=== PATIENT | male | born 1955 | race Caucasian/White ===

== ENCOUNTER → 2024-06-03 | Outpatient (BNVA) | payer MEDICARE, MEDICAID, SELFPAY | END | disposition home or self-care (01) | PROVIDERS: PCP Internal Medicine; Referring Provider Internal Medicine; Visit Provider Urology | DX: N40.1 Benign prostatic hyperplasia with lower urinary tract symptoms (principal); R39.12 Poor urinary stream; I50.9 Heart failure, unspecified | CPT/HCPCS: 51741; 51798 ==

== ENCOUNTER 2024-09-23 10:15 | Outpatient (AMB) | payer MEDICARE, MEDICAID, SELFPAY ==
--- NOTE | 2024-09-23 10:41 | ORTHONT_ITS ---
Vital signs 09/23/24 10:43 Height 1.88 m Height Method Stated Weight 116.176 kg Weight Measurement Method Standing Scale BMI 32.8 BP 138/64 H Blood Pressure Source Automatic Cuff Blood Pressure Location Left Upper Arm Position Sitting Respiration 18 Pulse 56 L Pulse Source Monitor Temp 98.1 F Temp Source Temporal Artery Scan Pulse Oximetry (%) 95 Oxygen Delivery Method Room Air Med/Allergies Allergies & Medications Allergies adhesive Allergy (Uncoded 06/03/24 13:43) blisters Medication Reconciliation cholecalciferol (vitamin D3) 125 mcg (5,000 unit) capsule 125 mcg PO QDAY 06/20/22 [History Confirmed 09/23/24] famotidine 20 mg tablet 20 mg PO QDAY 06/20/22 [History Confirmed 09/23/24] multivitamin 1 tab PO QDAY 06/20/22 [History Confirmed 06/03/24] tamsulosin 0.4 mg capsule 0.8 mg PO QHS 06/20/22 [History Confirmed 09/23/24] oxybutynin chloride 10 mg tablet,extended release 24 hr 10 mg PO QDAY 09/23/24 [History Confirmed 09/23/24] Exam Exam Patient is in no acute distress and is cooperative with the examination today. Breathing is nonlabored. In no respiratory distress. Bilateral extremities were evaluated and demonstrates sensation intact to light touch. Palpable pedal pulses are present. No significant edema is present. Bilateral hips were examined. The patient has no pain with log roll of the hips. Internal rotation to 30 degrees and external rotation to 30 degrees is painless. Negative FADIR. The left knee was examined. The left knee is in varus alignment. Range of motion from 0-115 degrees. Knee is stable to varus and valgus as well as AP translation with <5mm. Patient has a negative McMurrays. There is no pain with patellofemoral compression and no crepitus noted. The knee is tender to palpation medially. The right knee was also examined. The right knee is in varus alignment. Range of motion from 0-120 degrees. Knee is stable to varus and valgus as well as AP translation with <5mm. Patient has a negative McMurrays. There is no pain with patellofemoral compression and no crepitus noted. The knee is tender to palpation medially. I have an x-ray report which says there is severe arthritis bilaterally Assessment and Plan Problem List (1) Degenerative arthritis of knee, bilateral: Status: Acute Plan: Patient is a pleasant 68-year-old male with bilateral knee arthritis. He is still doing well and has extensive medical comorbidities. He would like to continue with conservative management. We recommend injections and I would like to see an x-ray as well. We will see him at the next visit for likely injections Advanced Care Planning Discussion Advance care planning discussed with:: patient Office Procedures GNS Level of Care Nursing/Assessment Patient Status: Initial/New Patient Nursing Assessment/Reassesment: Medication Reconciliation, Update PMH in EMR and Vital Signs Coordination of Care: Complex Care and Chronic Disease 1-5, Education Complex Pt/Fam, Consent,records obtained, informed consent, 1 Ins Authorization, Lab and Imaging orders, Results/Orders obtained and Staff clarify orders New Patient Charge New Patient Point Assignment: 1124 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 Intake Visit Data Collection New Patient or Established: New Patient (never been to [facility]) Reason for Visit:: RIGHT KNEE PAIN Seen by Clinical Staff ONLY (RN/MA): No PCP or OBGYN visit in last 3 months: Yes Hx Now: No Do You Feel Safe at Home: Yes Authorities Contacted: N/A Questionairres Past Medical History Past Medical History Have you ever been diagnosed with any of the following: Cardiology Problems Congestive Heart Failure: Yes Respiratory Problems Smoking: No Smoking Exposure: No Subjective Visit Visit for: new patient and knee Immunization / Flu Flu Vaccine in the Last 12 Months: Yes Flu Vaccine Exclusion Criteria: Already Received History of Present Illness Chief complaint: Bilateral knee pain Date of injury / onset of symptoms: 2009 Duane is a pleasant 68-year-old male with bilateral knee pain worse on the right. This has been ongoing for several years. Has had over 6 injections in that knee. He is no longer taking anti-inflammatories. He has a history of congestive heart failure and a history of a valve replacement. He is on any blood thinners right now. He reports he still functioning well Pain Pain level (0-10): 3 Pain duration: COMES AND GOES Pain location: inside (medial), outside (lateral) and anterior Pain quality: dull Pain timing: increases with activity Associated signs & symptoms: none Ambulatory data Ambulatory device: none Treatments Number of previous injections: 2 Improvement with previous injections: No Improvement with PT: No Improvement with NSAIDS: no Review of Systems Review of Systems: All systems negative unless otherwise noted in HPI.
[2024-09-23 10:43] VITALS: BP 138/64; PULSE 56; RESP 18; TEMP 36.7; O2SAT 95; BMI 32.8
--- NOTE | 2024-09-23 10:48 | XR_ITS ---
Examination: Bilateral knees 2 views Right lateral knee left lateral knee 2 views Right axial knee left axial knee 2 views TECHNIQUE: Bilateral AP knees standing single view, bilateral PA knees standing single view flexion Standing right lateral knee left lateral knee 2 views Right axial knee left axial knee 2 views total 6 views Exam date and time: September 23, 2024 1102 hours INDICATIONS: Knee pain one year. FINDINGS: Moderate osteopenia Moderate to advanced narrowing medial joint space right knee Moderate osteoarthritis right patellofemoral joint No fracture Moderate narrowing medial joint space left knee Moderate osteoarthritis left patellofemoral joint No fracture IMPRESSION: Moderate to advanced narrowing medial joint space right knee Moderate osteoarthritis right patellofemoral joint Moderate narrowing medial joint space left knee Moderate osteoarthritis left patellofemoral joint
== END 2024-09-23 10:54 | disposition home or self-care (01) ==
LOC: HODSRG 10:15
PROVIDERS: PCP Internal Medicine; Referring Provider Internal Medicine; Supervising Provider Orthopaedic Surgery Adult Reconstructive Orthopaedic Surgery; Visit Provider Orthopaedic Surgery Adult Reconstructive Orthopaedic Surgery
DX: M17.0 Bilateral primary osteoarthritis of knee (principal); M25.562 Pain in left knee; M25.561 Pain in right knee
CPT/HCPCS: 73564; 99204; G0463

== ENCOUNTER 2024-10-14 09:35 | Outpatient (AMB) | payer MEDICARE, MEDICAID, SELFPAY ==
[2024-10-14 10:18] VITALS: BP 109/70; PULSE 69; RESP 18; TEMP 36.6; O2SAT 98; BMI 32.3
--- NOTE | 2024-10-14 10:18 | ORTHONT_ITS ---
Vital signs 10/14/24 10:18 Height 1.88 m Height Method Stated Weight 114.475 kg Weight Measurement Method Standing Scale BMI 32.3 BP 109/70 Blood Pressure Source Automatic Cuff Blood Pressure Location Right Upper Arm Position Sitting Respiration 18 Pulse 69 Pulse Source Monitor Temp 97.8 F Temp Source Temporal Artery Scan Pulse Oximetry (%) 98 Oxygen Delivery Method Room Air Med/Allergies Allergies & Medications Allergies adhesive Allergy (Uncoded 10/14/24 10:18) blisters Medication Reconciliation cholecalciferol (vitamin D3) 125 mcg (5,000 unit) capsule 125 mcg PO QDAY 06/20/22 [History Confirmed 10/14/24] famotidine 20 mg tablet 20 mg PO QDAY 06/20/22 [History Confirmed 10/14/24] multivitamin 1 tab PO QDAY 06/20/22 [History Confirmed 10/14/24] tamsulosin 0.4 mg capsule 0.8 mg PO QHS 06/20/22 [History Confirmed 10/14/24] oxybutynin chloride 10 mg tablet,extended release 24 hr 10 mg PO QDAY 09/23/24 [History Confirmed 10/14/24] Exam Exam Patient is in no acute distress and is cooperative with the examination today. Breathing is nonlabored. In no respiratory distress. Bilateral extremities were evaluated and demonstrates sensation intact to light touch. Palpable pedal pulses are present. No significant edema is present. Bilateral hips were examined. The patient has no pain with log roll of the hips. Internal rotation to 30 degrees and external rotation to 30 degrees is painless. Negative FADIR. The left knee was examined. The left knee is in varus alignment. Range of motion from 0-115 degrees. Knee is stable to varus and valgus as well as AP translation with <5mm. Patient has a negative McMurrays. There is no pain with patellofemoral compression and no crepitus noted. The knee is tender to pal pation medially. The right knee was also examined. The right knee is in varus alignment. Range of motion from 0-120 degrees. Knee is stable to varus and valgus as well as AP translation with <5mm. Patient has a negative McMurrays. There is no pain with patellofemoral compression and no crepitus noted. The knee is tender to palpation medially. X-rays demonstrate severe arthritis on the right side mainly 20 is narrowing. On the left side he has mild to moderate arthritis Assessment and Plan Problem List (1) Degenerative arthritis of knee, bilateral: Status: Acute Plan: Patient is a pleasant 68-year-old male with bilateral knee arthritis. He is still doing well and has extensive medical comorbidities. He would like to continue with conservative management. He would like bilateral knee injections today. Recommend knee cortisone injections as patient would like to proceed with conservative treatment at this time. The risks and benefits of the procedure were reviewed with the patient and patient gave verbal consent to continue with the procedure. Procedure: performed by Dr. Dobbs Using sterile technique the Bilateral knees were thoroughly prepped with alcohol, and approximately 1 cc of Kenalog 40 mg/mL and 4 cc of 1% lidocaine was injected into each knee without resistance into the medial tibial femoral joint space. The patient tolerated the procedure. Advanced Care Planning Discussion Advance care planning discussed with:: patient Office Procedures GNS Level of Care Nursing/Assessment Patient Status: Established Patient Nursing Assessment/Reassesment: Medication Reconciliation, Update PMH in EMR and Vital Signs Coordination of Care: Complex Care and Chronic Disease 1-5, Education Complex Pt/Fam, Consent,records obtained, informed consent, Results/Orders obtained and Staff clarify orders Established Patient Charge Established Patient Point Assignment: 95 Established Patient Point Charge: EP Level 3 (80-115) Surgical Proc/IM SQ injection Major Surgical Procedure: Yes (KNEE INJECTIONS ) Medication Given Medication Given Medication Given: Yes Documented Dose Given: 4 Route: Infiitration Medication Given Medication Given Medication Given: Yes Documented Dose Given: 2 Route: Infiitration Office Meds Xylocaine 10 mg/mL (1 %) injection solution Performing Provider: Daryl Dobbs MD Performing Location: [facility] Administered by: Daryl Dobbs MD on 10/14/24 10:43 Dose Route Admin Location Dispensed Lot Number Expiration Date [facility] [employer] 40 mL Infiltration 40 mL triamcinolone acetonide 40 mg/mL suspension for injection Performing Provider: Daryl Dobbs MD Performing Location: [facility] Administered by: Daryl Dobbs MD on 10/14/24 10:43 Dose Route Admin Location Dispensed Lot Number Expiration Date 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 PCP or OBGYN visit in last 3 months: Yes Hx Now: No Do You Feel Safe at Home: Yes Authorities Contacted: N/A Questionairres Past Medical History Past Medical History Have you ever been diagnosed with any of the following: Cardiology Problems Congestive Heart Failure: Yes Respiratory Problems Smoking: No Smoking Exposure: No Subjective Visit Visit for: follow up visit, knee and x-rays Immunization / Flu Flu Vaccine in the Last 12 Months: No Flu Vaccine Exclusion Criteria: No Exclusion Criteria History of Present Illness Chief complaint: F/U XRAYS Date of injury / onset of symptoms: 2009 Duane is a pleasant 68-year-old male with bilateral knee pain worse on the right. This has been ongoing for several years. Has had over 6 injections in that knee. He is no longer taking anti-inflammatories. He has a history of congestive heart failure and a history of a valve replacement. He is not on any blood thinners right now. He reports he still functioning well Personal History Red flag PMH: BMI BMI Counceling provided: Yes Pain Pain level (0-10): 6 Pain duration: ALL DAY Pain location: inside (medial), outside (lateral) and anterior Pain quality: dull Pain timing: increases with activity Associated signs & symptoms: none Ambulatory data Ambulatory device: none Treatments Number of previous injections: 2 Improvement with previous injections: No Improvement with PT: No Improvement with NSAIDS: n/a Review of Systems Review of Systems: All systems negative unless otherwise noted in HPI.
== END 2024-10-14 10:38 | disposition home or self-care (01) ==
LOC: HODSRG 09:35
PROVIDERS: PCP Internal Medicine; Referring Provider Internal Medicine; Supervising Provider Orthopaedic Surgery Adult Reconstructive Orthopaedic Surgery; Visit Provider Orthopaedic Surgery Adult Reconstructive Orthopaedic Surgery
DX: M17.0 Bilateral primary osteoarthritis of knee (principal); I50.9 Heart failure, unspecified; Z95.2 Presence of prosthetic heart valve
CPT/HCPCS: 20610; 99213; J3301; J3490; G0463

== ENCOUNTER 2025-01-18 10:09 | Outpatient (AMB) | payer MEDICARE, MEDICAID, SELFPAY ==
[2025-01-18 10:56] VITALS: BP 117/74; PULSE 80; RESP 20; TEMP 36.8; O2SAT 95; BMI 24.5
--- NOTE | 2025-01-18 10:56 | PD.ORTHCLVIS ---
Vital signs 01/18/25 10:56 Height 1.88 m Height Method Stated Weight 86.693 kg Weight Measurement Method Standing Scale BMI 24.5 BP 117/74 Blood Pressure Source Automatic Cuff Blood Pressure Location Left Upper Arm Position Sitting Respiration 20 Pulse 80 Pulse Source Monitor Temp 98.2 F Temp Source Temporal Artery Scan Pulse Oximetry (%) 95 Oxygen Delivery Method Room Air Med/Allergies Allergies & Medications Allergies adhesive Allergy (Uncoded 01/18/25 11:09) blisters Medication Reconciliation cholecalciferol (vitamin D3) 125 mcg (5,000 unit) capsule 125 mcg PO QDAY 06/20/22 [History Confirmed 01/18/25] famotidine 20 mg tablet 20 mg PO QDAY 06/20/22 [History Confirmed 01/18/25] multivitamin 1 tab PO QDAY 06/20/22 [History Confirmed 01/18/25] tamsulosin 0.4 mg capsule 0.8 mg PO QHS 06/20/22 [History Confirmed 01/18/25] oxybutynin chloride 10 mg tablet,extended release 24 hr 10 mg PO QDAY 09/23/24 [History Confirmed 01/18/25] Exam Exam Patient is in no acute distress and is cooperative with the examination today. Breathing is nonlabored. In no respiratory distress. Bilateral extremities were evaluated and demonstrates sensation intact to light touch. Palpable pedal pulses are present. No significant edema is present. Bilateral hips were examined. The patient has no pain with log roll of the hips. Internal rotation to 30 degrees and external rotation to 30 degrees is painless. Negative FADIR. The left knee was examined. The left knee is in varus alignment. Range of motion from 0-115 degrees. Knee is stable to varus and valgus as well as AP translation with <5mm. Patient has a negative McMurrays. There is no pain with patellofemoral compression and no crepitus noted. The knee is tender to palpation medially. The right knee was also examined. The right knee is in varus alignment. Range of motion from 0-120 degrees. Knee is stable to varus and valgus as well as AP translation with <5mm. Patient has a negative McMurrays. There is no pain with patellofemoral compression and no crepitus noted. The knee is tender to palpation medially. X-rays demonstrate severe arthritis on the right side with complete joint space narrowing. On the left side he has mild to moderate arthritis Assessment and Plan Problem List (1) Degenerative arthritis of knee, bilateral: Status: Acute Plan: Patient is a pleasant 68-year-old male with bilateral knee arthritis. He is still doing well and has extensive medical comorbidities. He would like to continue with conservative management. He would like bilateral knee injections today. Recommend knee cortisone injection as patient would like to proceed with conservative treatment at this time. The risks and benefits of the procedure were reviewed with the patient and patient gave verbal consent to continue with the procedure. Procedure: performed by Dr. Dobbs Using sterile technique the left knee was thoroughly prepped with alcohol, and approximately 1 cc of Depo-Medrol 80mg/mL and 4 cc of 0.2% ropivacaine was injected without resistance into the medial tibial femoral joint space. The patient tolerated the procedure. Recommend knee cortisone injection as patient would like to proceed with conservative treatment at this time. The risks and benefits of the procedure were reviewed with the patient and patient gave verbal consent to continue with the procedure. Procedure: performed by Dr. Dobbs Using sterile technique the Right knee was thoroughly prepped with alcohol, and approximately 1 cc of Depo-Medrol 80mg/mL and 4 cc of 0.2% ropivacaine was injected without resistance into the medial tibial femoral joint space. The patient tolerated the procedure. Advanced Care Planning Discussion Advance care planning discussed with:: patient Office Procedures GNS Level of Care Nursing/Assessment Patient Status: Established Patient Nursing Assessment/Reassesment: Medication Reconciliation, Update PMH in EMR and Vital Signs Coordination of Care: Complex Care and Chronic Disease 1-5, Education Complex Pt/Fam, Consent,records obtained, informed consent, Results/Orders obtained and Staff clarify orders Established Patient Charge Established Patient Point Assignment: 95 Established Patient Point Charge: EP Level 3 (80-115) Surgical Proc/IM SQ injection Major Surgical Procedure: Yes (BILATERAL KNEE INJECTION) Medication Given Medication Given Medication Given: Yes Documented Dose Given: 1 Route: Infiitration Medication Given Medication Given Medication Given: Yes Documented Dose Given: 1 Route: Infiitration Medication Given Medication Given Medication Given: Yes Documented Dose Given: 4 Route: Infiitration Medication Given Medication Given Medication Given: Yes Documented Dose Given: 4 Route: Infiitration Office Meds methylprednisolone acetate 80 mg/mL suspension for injection Performing Provider: Daryl Dobbs MD Performing Location: [facility] Administered by: Daryl Dobbs MD on 01/18/25 11:24 Dose Route Admin Location Dispensed Lot Number Expiration Date [employer] 80 mg intra-articular 1 mL [id number] 06/24/26 8335-7893-92 [employer] methylprednisolone acetate 80 mg/mL suspension for injection Performing Provider: Daryl Dobbs MD Performing Location: [facility] Administered by: Daryl Dobbs MD on 01/18/25 11:39 Dose Route Admin Location Dispensed Lot Number Expiration Date [employer] 80 mg intra-articular 1 mL [id number] 06/24/26 4393-2584-75 [employer] ropivacaine (PF) 2 mg/mL (0.2 %) injection solution Performing Provider: Daryl Dobbs MD Performing Location: [facility] Administered by: Daryl Dobbs MD on 01/18/25 11:39 Dose Route Admin Location Dispensed Lot Number Expiration Date [employer] 20 mL Infiltration 20 mL [id number] 06/24/27 96192-496-75 [employer] ropivacaine (PF) 2 mg/mL (0.2 %) injection solution Performing Provider: Daryl Dobbs MD Performing Location: [facility] Administered by: Daryl Dobbs MD on 01/18/25 11:39 Dose Route Admin Location Dispensed Lot Number Expiration Date [employer] 20 mL Infiltration 20 mL [id number] 06/24/27 99338-216-42 [facility] [place] Intake Visit Data Collection New Patient or Established: Established Patient (seen at [facility] within 3 years) Reason for Visit:: XRAYS F/U Seen by Clinical Staff ONLY (RN/MA): No Verbal consent obtained for Telemed visit?: No 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 PCP or OBGYN visit in last 3 months: Yes Hx Now: No Do You Feel Safe at Home: Yes Authorities Contacted: N/A Questionairres Past Medical History Past Medical History Have you ever been diagnosed with any of the following: Cardiology Problems Congestive Heart Failure: Yes Respiratory Problems Smoking: No Smoking Exposure: No Subjective Visit Visit for: follow up visit, knee and x-rays Immunization / Flu Flu Vaccine in the Last 12 Months: No Flu Vaccine Exclusion Criteria: No Exclusion Criteria History of Present Illness Chief complaint: F/U XRAYS Date of injury / onset of symptoms: 2009 Duane is a pleasant 68-year-old male with bilateral knee pain worse on the right. This has been ongoing for several years. Has had over 6 injections in that knee. He is no longer taking anti-inflammatories. He has a history of congestive heart failure and a history of a valve replacement. He is not on any blood thinners right now. He reports he still functioning well Personal History Red flag PMH: BMI BMI Counceling provided: Yes Pain Pain level (0-10): 6 Pain duration: ALL DAY Pain location: inside (medial), outside (lateral) and anterior Pain quality: dull Pain timing: increases with activity Associated signs & symptoms: none Ambulatory data Ambulatory device: none Treatments Number of previous injections: 2 Improvement with previous injections: No Improvement with PT: No Improvement with NSAIDS: n/a Review of Systems Review of Systems: All systems negative unless otherwise noted in HPI.
== END 2025-01-18 11:34 | disposition home or self-care (01) ==
LOC: HODSRG 10:09
PROVIDERS: PCP Internal Medicine; Referring Provider Internal Medicine; Supervising Provider Orthopaedic Surgery Adult Reconstructive Orthopaedic Surgery; Visit Provider Orthopaedic Surgery Adult Reconstructive Orthopaedic Surgery
DX: M17.0 Bilateral primary osteoarthritis of knee (principal); I50.9 Heart failure, unspecified
CPT/HCPCS: 20610; 99213; J1010; J2795; G0463

== ENCOUNTER 2025-04-26 09:48 | Outpatient (AMB) | payer MEDICARE, MEDICAID, SELFPAY ==
--- NOTE | 2025-04-26 10:28 | PD.ORTHCLVIS ---
Vital signs 04/26/25 10:29 Height 1.88 m Height Method Stated Weight 109.372 kg Weight Measurement Method Standing Scale BMI 30.9 BP 124/75 Blood Pressure Source Automatic Cuff Blood Pressure Location Left Upper Arm Position Sitting Respiration 20 Pulse 88 Pulse Source Monitor Temp 98.1 F Temp Source Temporal Artery Scan Pulse Oximetry (%) 98 Oxygen Delivery Method Room Air Med/Allergies Allergies & Medications Allergies adhesive Allergy (Uncoded 04/26/25 10:30) blisters Medication Reconciliation cholecalciferol (vitamin D3) 125 mcg (5,000 unit) capsule 125 mcg PO QDAY 06/20/22 [History Confirmed 04/26/25] famotidine 20 mg tablet 20 mg PO QDAY 06/20/22 [History Confirmed 04/26/25] multivitamin 1 tab PO QDAY 06/20/22 [History Confirmed 04/26/25] tamsulosin 0.4 mg capsule 0.8 mg PO QHS 06/20/22 [History Confirmed 04/26/25] oxybutynin chloride 10 mg tablet,extended release 24 hr 10 mg PO QDAY 09/23/24 [History Confirmed 04/26/25] Assessment and Plan Problem List (1) Degenerative arthritis of knee, bilateral: Status: Acute Advanced Care Planning Discussion Advance care planning discussed with:: patient Office Procedures GNS Level of Care Nursing/Assessment Patient Status: Established Patient Nursing Assessment/Reassesment: Medication Reconciliation, Update PMH in EMR and Vital Signs Coordination of Care: Complex Care and Chronic Disease 1-5, Education Complex Pt/Fam, Consent,records obtained, informed consent, Results/Orders obtained and Staff clarify orders Established Patient Charge Established Patient Point Assignment: 95 Established Patient Point Charge: EP Level 3 (80-115) Surgical Proc/IM SQ injection Minor Surgical Procedure: Yes (BILATERAL KNEE INJECTION) Medication Given Medication Given Medication Given: Yes Documented Dose Given: 2 Route: Infiitration Medication Given Medication Given Medication Given: Yes Documented Dose Given: 8 Route: Infiitration Office Meds methylprednisolone acetate 80 mg/mL suspension for injection Performing Provider: Daryl Dobbs MD Performing Location: [facility] Administered by: Daryl Dobbs MD on 04/26/25 10:40 Dose Route Admin Location Dispensed Lot Number Expiration Date Package [facility] Take Up Operator 160 mg intra-articular KNEE 2 mL [id number] 12/22/26 [address]-8 [id number] [employer] ropivacaine (PF) 2 mg/mL (0.2 %) injection solution Performing Provider: Daryl Dobbs MD Performing Location: [facility] Administered by: Daryl Dobbs MD on 04/26/25 10:40 Dose Route Admin Location Dispensed Lot Number Expiration Date Package NDC NDC Take Up Operator 40 mL Infiltration KNEE 40 mL [id number] 06/24/27 97506-666-62 [id number] [facility] Intake Visit Data Collection New Patient or Established: Established Patient (seen at [facility] within 3 years) Reason for Visit:: BILATERAL KNEE INJ Seen by Clinical Staff ONLY (RN/MA): No PCP or OBGYN visit in last 3 months: Yes Hx Now: No Do You Feel Safe at Home: Yes Authorities Contacted: N/A Questionairres Past Medical History Past Medical History Have you ever been diagnosed with any of the following: Cardiology Problems Congestive Heart Failure: Yes Respiratory Problems Smoking: No Smoking Exposure: No Subjective Visit Visit for: follow up visit, knee and x-rays Immunization / Flu Flu Vaccine in the Last 12 Months: No Flu Vaccine Exclusion Criteria: No Exclusion Criteria History of Present Illness Chief complaint: F/U XRAYS Date of injury / onset of symptoms: 2009 Personal History Red flag PMH: BMI BMI Counceling provided: Yes Pain Pain level (0-10): 6 Pain duration: ALL DAY Pain location: inside (medial), outside (lateral) and anterior Pain quality: dull Pain timing: increases with activity Associated signs & symptoms: none Ambulatory data Ambulatory device: none Treatments Number of previous injections: 2 Improvement with previous injections: No Improvement with PT: No Improvement with NSAIDS: n/a Review of Systems Review of Systems: All systems negative unless otherwise noted in HPI.
--- NOTE | 2025-04-26 10:28 | PD.ORTHCLVIS ---
Vital signs 04/26/25 10:29 Height 1.88 m Height Method Stated Weight 109.372 kg Weight Measurement Method Standing Scale BMI 30.9 BP 124/75 Blood Pressure Source Automatic Cuff Blood Pressure Location Left Upper Arm Position Sitting Respiration 20 Pulse 88 Pulse Source Monitor Temp 98.1 F Temp Source Temporal Artery Scan Pulse Oximetry (%) 98 Oxygen Delivery Method Room Air Med/Allergies Allergies & Medications Allergies adhesive Allergy (Uncoded 04/26/25 10:30) blisters Medication Reconciliation cholecalciferol (vitamin D3) 125 mcg (5,000 unit) capsule 125 mcg PO QDAY 06/20/22 [History Confirmed 04/26/25] famotidine 20 mg tablet 20 mg PO QDAY 06/20/22 [History Confirmed 04/26/25] multivitamin 1 tab PO QDAY 06/20/22 [History Confirmed 04/26/25] tamsulosin 0.4 mg capsule 0.8 mg PO QHS 06/20/22 [History Confirmed 04/26/25] oxybutynin chloride 10 mg tablet,extended release 24 hr 10 mg PO QDAY 09/23/24 [History Confirmed 04/26/25] Exam Exam Patient is in no acute distress and is cooperative with the examination today. Breathing is nonlabored. In no respiratory distress. Bilateral extremities were evaluated and demonstrates sensation intact to light touch. Palpable pedal pulses are present. No significant edema is present. Bilateral hips were examined. The patient has no pain with log roll of the hips. Internal rotation to 30 degrees and external rotation to 30 degrees is painless. Negative FADIR. The left knee was examined. The left knee is in varus alignment. Range of motion from 0-115 degrees. Knee is stable to varus and valgus as well as AP translation with <5mm. Patient has a negative McMurrays. There is no pain with patellofemoral compression and no crepitus noted. The knee is tender to palpation medially. The right knee was also examined. The right knee is in varus alignment. Range of motion from 0-120 degrees. Knee is stable to varus and valgus as well as AP translation with <5mm. Patient has a negative McMurrays. There is no pain with patellofemoral compression and no crepitus noted. The knee is tender to palpation medially. X-rays demonstrate severe arthritis on the right side with complete joint space narrowing. On the left side he has mild to moderate arthritis Assessment and Plan Problem List (1) Degenerative arthritis of knee, bilateral: Status: Acute Plan: Patient is a pleasant 68-year-old male with bilateral knee arthritis. He is still doing well and has extensive medical comorbidities. He would like to continue with conservative management. He would like bilateral knee injections today. Recommend knee cortisone injection as patient would like to proceed with conservative treatment at this time. The risks and benefits of the procedure were reviewed with the patient and patient gave verbal consent to continue with the procedure. Procedure: performed by Dr. Dobbs Using sterile technique the left knee was thoroughly prepped with alcohol, and approximately 1 cc of Depo-Medrol 80mg/mL and 4 cc of 0.2% ropivacaine was injected without resistance into the medial tibial femoral joint space. The patient tolerated the procedure. Recommend knee cortisone injection as patient would like to proceed with conservative treatment at this time. The risks and benefits of the procedure were reviewed with the patient and patient gave verbal consent to continue with the procedure. Procedure: performed by Dr. Dobbs Using sterile technique the Right knee was thoroughly prepped with alcohol, and approximately 1 cc of Depo-Medrol 80mg/mL and 4 cc of 0.2% ropivacaine was injected without resistance into the medial tibial femoral joint space. The patient tolerated the procedure. Advanced Care Planning Discussion Advance care planning discussed with:: patient Office Procedures GNS Level of Care Nursing/Assessment Patient Status: Established Patient Nursing Assessment/Reassesment: Medication Reconciliation, Update PMH in EMR and Vital Signs Coordination of Care: Complex Care and Chronic Disease 1-5, Education Complex Pt/Fam, Consent,records obtained, informed consent, Results/Orders obtained and Staff clarify orders Established Patient Charge Established Patient Point Assignment: 95 Established Patient Point Charge: EP Level 3 (80-115) Surgical Proc/IM SQ injection Minor Surgical Procedure: Yes (BILATERAL KNEE INJECTION) Medication Given Medication Given Medication Given: Yes Documented Dose Given: 2 Route: Infiitration Medication Given Medication Given Medication Given: Yes Documented Dose Given: 8 Route: Infiitration Office Meds methylprednisolone acetate 80 mg/mL suspension for injection Performing Provider: Daryl Dobbs MD Performing Location: [facility] Administered by: Daryl Dobbs MD on 04/26/25 10:40 Dose Route Admin Location Dispensed Lot Number Expiration Date Package [facility] [employer] Operator 160 mg intra-articular KNEE 2 mL [id number] 12/22/26 [address]-7 [id number] [employer] ropivacaine (PF) 2 mg/mL (0.2 %) injection solution Performing Provider: Daryl Dobbs MD Performing Location: [facility] Administered by: Daryl Dobbs MD on 04/26/25 10:40 Dose Route Admin Location Dispensed Lot Number Expiration Date Package [facility] [employer] Operator 40 mL Infiltration KNEE 40 mL [id number] 06/24/27 80885-588-10 [id number] [employer] Questionairres Past Medical History Past Medical History Have you ever been diagnosed with any of the following: Cardiology Problems Congestive Heart Failure: Yes Respiratory Problems Smoking: No Smoking Exposure: No Subjective Visit Visit for: follow up visit, knee and x-rays Immunization / Flu Flu Vaccine in the Last 12 Months: No Flu Vaccine Exclusion Criteria: No Exclusion Criteria History of Present Illness Chief complaint: F/U XRAYS Date of injury / onset of symptoms: 2009 Duane is a pleasant 68-year-old male with bilateral knee pain worse on the right. This has been ongoing for several years. Has had over 6 injections in that knee. He is no longer taking anti-inflammatories. He has a history of congestive heart failure and a history of a valve replacement. He is not on any blood thinners right now. He reports he still functioning well Personal History Red flag PMH: BMI BMI Counceling provided: Yes Pain Pain level (0-10): 6 Pain duration: ALL DAY Pain location: inside (medial), outside (lateral) and anterior Pain quality: dull Pain timing: increases with activity Associated signs & symptoms: none Ambulatory data Ambulatory device: none Treatments Number of previous injections: 2 Improvement with previous injections: No Improvement with PT: No Improvement with NSAIDS: n/a Review of Systems Review of Systems: All systems negative unless otherwise noted in HPI.
[2025-04-26 10:29] VITALS: BP 124/75; PULSE 88; RESP 20; TEMP 36.7; O2SAT 98; BMI 30.9
== END 2025-04-26 10:31 | disposition home or self-care (01) ==
LOC: HODSRG 09:48
PROVIDERS: PCP Internal Medicine; Referring Provider Internal Medicine; Supervising Provider Orthopaedic Surgery Adult Reconstructive Orthopaedic Surgery; Visit Provider Orthopaedic Surgery Adult Reconstructive Orthopaedic Surgery
DX: M17.0 Bilateral primary osteoarthritis of knee (principal); M25.562 Pain in left knee; M25.561 Pain in right knee; I50.9 Heart failure, unspecified; Z95.2 Presence of prosthetic heart valve
CPT/HCPCS: 20610; 99213; J1010; J2795; G0463